=== PATIENT | male | born 1965 | race Caucasian/White ===

== ENCOUNTER 2017-06-28 07:28 | Outpatient (CLI) | payer OTHER | END 2017-06-28 07:57 | disposition home or self-care (01) | LOC: NUCLEAR 07:28 | DX: R91.1 Solitary pulmonary nodule (principal); C34.12 Malignant neoplasm of upper lobe, left bronchus or lung; E04.2 Nontoxic multinodular goiter; J90 Pleural effusion, not elsewhere classified | CPT/HCPCS: 78816; A9552 ==